=== PATIENT | female | born 1985 | race Caucasian/White ===

== ENCOUNTER 2018-08-24 08:30 | Emergency (ER) | payer SELFPAY ==
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
[2018-08-24 09:03] VITALS: BP 118/97
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
== END 2018-08-24 09:44 | disposition left against medical advice (07) ==
DX: R55 Syncope and collapse (principal)